=== PATIENT | female | born 1985 | race Two or more races ===

== ENCOUNTER 2021-08-03 22:08 | Emergency (ER) | payer BC, OTHER ==
[2021-08-03 22:14] VITALS: BP 117/71; PULSE 78; TEMP 98.3; BMI 33.6
[2021-08-03] MEDS ORDERED: KETOROLAC TROMETHAMINE 60 MG/2 ML VIAL IM ONE (23:04)
[2021-08-03] MEDS ORDERED: KETOROLAC TROMETHAMINE 30 MG/1 ML VIAL ONE (23:08)
== END 2021-08-03 23:17 | disposition home or self-care (01) ==
LOC: FER 22:08
PROC: 3E023GC Introduction of Other Therapeutic Substance into Muscle, Percutaneous Approach (ICD-10-PCS; principal; 2021-08-03)
DX: K08.89 Other specified disorders of teeth and supporting structures (principal)
CPT/HCPCS: 99284-25

== ENCOUNTER 2022-09-17 19:44 | Emergency (ER) | payer BC ==
[2022-09-17] MEDS ORDERED: SODIUM CHLORIDE 1,000 ML ONE (20:17)
[2022-09-17] MEDS ORDERED: ONDANSETRON 4 MG/2 ML VIAL IVPUSH ONE (20:17)
[2022-09-17 20:24] VITALS: BP 111/69; PULSE 84; RESP 18; TEMP 99.9; BMI 33.5
[2022-09-17] MEDS ORDERED: ONDANSETRON 4 MG/2 ML VIAL ONE (20:25)
[2022-09-17] MEDS ORDERED: ACETAMINOPHEN 1000 MG/100 ML BAG IVPB ONE (20:33)
[2022-09-17] MEDS ORDERED: ACETAMINOPHEN INJECTION 100 ML IVPB ONE (20:37)
[2022-09-17 20:45] LABS: HEMATOCRIT 38.1 % (32.4-45.2); HEMOGLOBIN 13.2 G/dL (10.7-15.3); MCHC 34.6 g/dl (32.0-36.0); MEAN CELL VOLUME 86.8 fl (80-96); MEAN PLT VOLUME 8.5 fl (7.5-11.1); RBC 4.39 10^6/uL (3.60-5.2); RDW 13.7 % (11.6-15.6); WHITE BLOOD COUNT 8.6 10^3/uL (4.0-10.8)
[2022-09-17 20:54] LABS: ALBUMIN 3.9 g/dl (3.4-5.0); BILIRUBIN,TOTAL 0.6 mg/dl (0.2-1); CALCIUM 9.1 mg/dl (8.5-10); CREATININE 0.8 mg/dl (0.55-1.3); TOT PROT 7.5 g/dl (6.4-8.2)
[2022-09-17 20:57] LABS: PLATELET ESTIMATE ADEQUATE
== END 2022-09-17 22:10 | disposition home or self-care (01) ==
LOC: FER 19:44
PROC: 3E033GC Introduction of Other Therapeutic Substance into Peripheral Vein, Percutaneous Approach (ICD-10-PCS; principal; 2022-09-17)
DX: R11.2 Nausea with vomiting, unspecified (principal); R51.9 Headache, unspecified
CPT/HCPCS: 0241U-QW; 36415; 80053; 85025; 99284-25